=== PATIENT | male | born 1960 | race American Indian/Alaskan Native ===

== ENCOUNTER 2017-03-08 22:38 | Inpatient (IN) | payer SELFPAY ==
[2017-03-09 00:18] LABS: Eosinophils % (Auto) 0.6 % (0.0-4.3); Hematocrit 41.2 % (35.5-45.6); Hemoglobin 13.1 gm/dl (11.8-15.2); Mean Corpuscular HGB Conc 32 % (32-34); Mean Corpuscular Hemoglobin 30 pg (28-32); Mean Corpuscular Volume 93 fl (84-94); Platelet Count 195 K/mm3 (140-440); Red Blood Count 4.46 M/mm3 (3.65-5.03); Red Cell Distribution Width 17.8 % (13.2-15.2); White Blood Count 6.3 K/mm3 (4.5-11.0)
[2017-03-09 00:39] LABS: BUN/Creatinine Ratio 27.69; Chloride 95.6 mmol/L (98-107); Potassium 3.6 mmol/L (3.6-5.0)
--- NOTE | 2017-03-09 02:41 | Emergency Department Report ---
HPI - General Chief Complaint: Dyspnea/Respdistress Time Seen by Provider: 03/09/17 02:24 - HPI HPI: Room 5 The patient is a 56-year-old male presenting with a chief complaint of bilateral lower extremity edema. The patient has a history of CHF and states she's been compliant with his Lasix however over the past 3 days he's noticed increased swelling of bilateral lower extremities. Patient states yesterday he developed shortness of breath. Patient denies chest pain. Location: [see above] Duration: 3 days Quality: Swelling Severity: Moderate Modifying factors: [see above] Context: [see above] Mode of transportation: Unknown ED Past Medical Hx - Past Medical History Hx Hypertension: Yes Hx CVA: Yes Hx Congestive Heart Failure: Yes Hx COPD: Yes - Surgical History Past Surgical History?: No Additional Surgical History: defibrillator - Family History Family history: no significant - Social History Smoking Status: Former Smoker (none 3 weeks) Substance Use Type: None ED Review of Systems ROS: Stated complaint: LEG SWELLING Other details as noted in HPI Comment: All other systems reviewed and negative Constitutional: denies: chills, fever Eyes: denies: eye pain, eye discharge, vision change ENT: denies: ear pain, throat pain Respiratory: shortness of breath Cardiovascular: orthopnea. denies: chest pain Endocrine: no symptoms reported Gastrointestinal: denies: abdominal pain, nausea, diarrhea Genitourinary: denies: urgency, dysuria Musculoskeletal: denies: back pain, joint swelling, arthralgia Skin: denies: rash, lesions Neurological: denies: headache, weakness, paresthesias Psychiatric: denies: anxiety, depression Hematological/Lymphatic: other (bilateral lower extremity edema) Physical Exam - Physical Exam Vital Signs: Vital Signs 03/08/17 03/09/17 22:52 02:11 Temperature 97.5 F L Pulse Rate 102 H 96 H Respiratory 18 29 H Rate Blood Pressure 135/107 O2 Sat by Pulse 100 100 Oximetry Physical Exam: GENERAL: The patient is well-developed well-nourished male lying on stretcher not appearing to be in acute distress. [] HEENT: Normocephalic. Atraumatic. Extraocular motions are intact. Patient has moist mucous membranes. NECK: Supple. Trachea midline CHEST/LUNGS: Clear to auscultation. There is no respiratory distress noted. HEART/CARDIOVASCULAR: Regular. There is no tachycardia. There is no gallop rub or murmur. ABDOMEN: Abdomen is soft, nontender. Patient has normal bowel sounds. There is no abdominal distention. SKIN: There is no rash. There is 2-3+ bilateral lower extremity pitting edema. There is no diaphoresis. NEURO: The patient is awake, alert, and oriented. The patient is cooperative. The patient has no focal neurologic deficits. The patient has normal speech MUSCULOSKELETAL: There is no evidence of acute injury. ED Course Vital Signs 03/08/17 03/09/17 22:52 02:11 Temperature 97.5 F L Pulse Rate 102 H 96 H Respiratory 18 29 H Rate Blood Pressure 135/107 O2 Sat by Pulse 100 100 Oximetry ED Medical Decision Making - Lab Data Result diagrams: 03/08/17 23:47 03/08/17 23:47 Laboratory Tests 03/08/17 03/08/17 23:47 23:47 WBC 6.3 RBC 4.46 Hgb 13.1 Hct 41.2 MCV 93 MCH 30 MCHC 32 RDW 17.8 H Plt Count 195 Lymph % (Auto) 16.3 Lander % (Auto) 8.8 H Eos % (Auto) 0.6 Baso % (Auto) 1.0 Lymph # 1.0 L Lander # 0.5 Eos # 0.0 Baso # 0.1 Seg Neutrophils % 73.3 H Seg Neutrophils # 4.6 Sodium 136 L Potassium 3.6 Chloride 95.6 L Carbon Dioxide 20 L Anion Gap 24 BUN 72 H Creatinine 2.6 H Estimated GFR 31 BUN/Creatinine Ratio 27.69 Glucose 140 H Calcium 9.0 Troponin T 0.606 H* - EKG Data -: EKG Interpreted by Me EKG shows normal: sinus rhythm Rate: normal - EKG Data When compared to previous EKG there are: previous EKG unavailable Interpretation: nonspecific ST-T wave coby (T-wave inversions in leads 1, aVL, V5 , V6) - Radiology Data Radiology results: image reviewed (chest x-ray) interpreted by me: Chest x-ray-no focal infiltrates, no pneumothorax - Differential Diagnosis CHF exacerbation, acute renal failure Critical care attestation.: If time is entered above; I have spent that time in minutes in the direct care of this critically ill patient, excluding procedure time. ED Disposition Clinical Impression: CHF exacerbation, Acute renal failure Disposition: OP ADMITTED IP TO THIS HOSP Is pt being admited?: Yes Does the pt Need Aspirin: Yes Condition: Fair Referrals: PRIMARY CARE,MD [Primary Care Provider] - 3-5 Days Time of Disposition: 02:41 (hospitalist paged)
[2017-03-09] MEDS ORDERED: NITROSTAT SL PRN (06:10)
[2017-03-09] MEDS ORDERED: MORPHINE IV PRN (06:10)
--- NOTE | 2017-03-09 07:14 | History and Physical Report ---
CHIEF COMPLAINT: Shortness of breath. Other complaint includes swelling in the lower extremities. HISTORY OF PRESENT ILLNESS: The patient is a 56-year-old male with history of congestive heart failure, presenting with shortness of breath going on for about 3 days and also swelling in both lower extremities. There is no history of chest pain, no history of cough, no history of fever or chills, or nausea or vomiting. The patient presented to the Emergency Room. PAST MEDICAL HISTORY: Pertinent for congestive heart failure, COPD, cerebrovascular accident, hypertension. PAST SURGICAL HISTORY: Pertinent for defibrillator placement. FAMILY HISTORY: Noncontributory. SOCIAL HISTORY: The patient used to smoke, but has not smoked for 3 weeks. Does not drink alcohol and does not use illicit drugs. MEDICATIONS: The patient's home medications are not known at this time. ALLERGIES: There are no known drug allergies. REVIEW OF SYSTEMS: CONSTITUTIONAL: There is no fever, no chills, no diaphoresis. HEENT: There is no headache or sore throat. CARDIOVASCULAR: There is no chest pain or orthopnea. RESPIRATORY: Shortness of breath present. No cough. GASTROINTESTINAL: No nausea, no vomiting. No abdominal pain, diarrhea or constipation. NEUROLOGICAL: There is no numbness, no dizziness, no altered mental status. MUSCULOSKELETAL: There is swelling of both lower extremities. DERMATOLOGICAL: There is no skin rash or itching. GENITOURINARY: There is no dysuria, hematuria or flank pain. Rest of system review is normal. PHYSICAL EXAMINATION: GENERAL: At the time of exam, the patient was found to be alert, oriented x 3 and not in acute distress. VITAL SIGNS: Shows normal temperature with pulse of 95, respirations 22, blood pressure 124/99, O2 sat of 100% on room air. HEENT: Shows pupils to be equal, round, reactive to light and accommodating. Extraocular muscles are intact. NECK: Supple with no JVD or carotid bruit. CARDIOVASCULAR: Showed normal first and second heart sounds with no gallops or murmur. EXTREMITIES: The patient has about 2+ pitting edema. RESPIRATORY: Shows good air entry on both sides of the lung with no abnormal breath sounds. GASTROINTESTINAL: Shows abdomen to be full, soft, nontender with no organomegaly or rigidity. NEUROLOGICAL: Shows no focal deficit. MUSCULOSKELETAL: Shows no joint swelling or tenderness. DERMATOLOGICAL: Shows no skin rash. GENITOURINARY: Showing no costovertebral angle tenderness. PERTINENT LABORATORY DATA AND IMAGING STUDIES: The patient had chest x-ray done that shows no acute cardiopulmonary lesion. The pacemaker is in place. CBC showed normal white count, normal hemoglobin and normal hematocrit with CBC differential showing elevated segmented neutrophils of 73.3%. Chemistry shows slightly decreased sodium of 136, low chloride of 95.6, low CO2 of 20, elevated BUN of 72 and elevated creatinine of 2.6 with elevated troponin level of 0.6. Second troponin level was 0.7. Brain natriuretic peptide is high with a value of 3153. DIAGNOSES: 1. Congestive heart failure exacerbation. 2. Acute renal failure. 3. Elevated troponin. PLAN: The patient will be admitted to medical floor on telemetry using CHF pathway. We will have one more cardiac enzymes checked q. 6 hours. The patient will be on IV Lasix 40 mg daily and will be on nitro paste half inch to anterior chest wall q.i.d. The patient will have nephrology consult with ____ because of acute renal failure and we will have cardiology consult with Dr. Barker because of elevated troponin with CHF. The patient will have echocardiogram done this morning and will be on oxygen by nasal cannula per respiratory protocol. The patient will be on IV Zofran 4 mg q. 6 hours for nausea and vomiting and Tylenol 650 mg by mouth every 4 hours as needed for fever and headache. The patient will be on IV morphine 2 mg every 5 minutes as needed for chest pain and will be on Nitrostat 0.4 mg sublingual q. 5 minutes for breakthrough chest pain. Further management of the patient's condition will be determined by the airport operations coordinator and the video technician. JOB# [id number] OCN/NTS
--- NOTE | 2017-03-09 09:18 | XRay Report ---
Chest 2 views: History: Shortness of breath. Findings: Cardiomegaly. Trachea is midline. Stable pacemaker. No consolidation, pneumothorax or pleural effusion. Impression: Cardiomegaly. No definite acute lung changes. Early CHF cannot be entirely excluded.
--- NOTE | 2017-03-09 09:28 | Event Note ---
56M with pmh of CHF, who pw SOB x 3 days 1. Acute exacerbation of CHF echo, iv diuretics, cardiology consult, optimize meds 2. NSTEMI appears to be demand ischemia, cardiology consult 3. FINN likely vasomotor nephropathy should improve renal perfusion with lasix nephrology consult, renal u/s
--- NOTE | 2017-03-09 09:59 | Consultation ---
History of Present Illness - Reason for Consult Consult date: 03/09/17 acute renal failure, chronic renal failure Requesting physician: MINOR ORTA - History of Present Illness This is a 56 y.o. male with PMHX hypertension, COPD, Hep C, chronic systolic HF with EF less than 15%, s/p AICD, CKD stage 3, with multiple hospitalizations this year for CHF exacerbations, known to me from last hospitalization at [facility] in Nov, now presenting at [facility] ER with complaints of SOB, dyspnea on exertion, along with worsening b/l LE swelling. In ER patient was found to have evidence of cardiomegaly, acute pulmonary edema on CXR with elevated pro BNP >43636 and elevated troponin as high as 0.7. Patient is admitted for acute CHF exacerbation and IV diuresis. Labs also revealed worsening renal function with BUN/Cr at 72/2.6 mg/dl from baseline Cr around 1.8-2mg/dl in February, as per records from [facility]. Renal consult is requested for management of FINN on CKD. Pt seen and examined at bedside, in moderate respiratory distress, denies recent fever, chills, nausea, vomiting, abdominal pain, dysuria, rash. Denies recent NSAIDs, use, IV contrast exposure. Past History Past Medical History: COPD, heart failure, hepatitis (Hep C), hypertension, renal failure Past Surgical History: Other (AICD placement ) Social history: denies: smoking, alcohol abuse, prescription drug abuse, IV drug use Family history: hypertension (mother - HTN) Medications and Allergies Allergies Allergy/AdvReac Type Severity Reaction Status Date / Time No Known Allergies Allergy Unverified 03/08/17 22:52 Home Medications Medication Instructions Recorded Confirmed Last Taken Type AtorvaSTATin 20 mg PO HS 03/09/17 03/09/17 Unknown History Clopidogrel [Plavix] 75 mg PO DAILY 03/09/17 03/09/17 Unknown History Furosemide [Lasix TAB] 40 mg PO BID 03/09/17 03/09/17 Unknown History ISOSORBIDE MONOnitrate [Imdur ER] 30 mg PO DAILY 03/09/17 03/09/17 Unknown History hydrALAZINE 25 mg PO QID 03/09/17 03/09/17 Unknown History Active Meds: Active Medications Atorvastatin Calcium (Lipitor) 20 mg PO HS [facility] Clopidogrel Bisulfate (Plavix) 75 mg PO DAILY [facility] Furosemide (Lasix) 40 mg IV Q12H [facility] Heparin Sodium (Porcine) (Heparin) 5,000 unit SUB-Q Q12HR [facility] Hydralazine HCl (Apresoline) 25 mg PO QID [facility] Isosorbide Mononitrate (Imdur) 30 mg PO DAILY [facility] Morphine Sulfate (Morphine) 2 mg IV Q5MIN PRN PRN Reason: For Chest Pain Nitroglycerin (Nitrostat) 0.4 mg SL .Q5MIN PRN PRN Reason: Chest Pain Nitroglycerin (Nitro-Bid 2%) 0.5 inch TP QIDNTG [facility] PRN Reason: Protocol Review of Systems All systems: negative Constitutional: fatigue, weakness Cardiovascular: edema, shortness of breath, dyspnea on exertion, paroxysmal nocturnal dyspnea, leg edema Respiratory: cough, shortness of breath, dyspnea on exertion Exam - Vital Signs Vital signs: Vital Signs Temp Pulse Resp BP Pulse Ox 97.5 F L 102 H 18 135/107 100 03/08/17 22:52 03/08/17 22:52 03/08/17 22:52 03/08/17 22:52 03/08/17 22:52 - General Appearance General appearance: well-nourished, appears stated age EENT: ATNC, PERRL, mucous membranes moist Neck: Present: neck supple Respiratory: Decreased Breath Sounds Heart: regular, S1S2 Gastrointestinal: Present: normal, normoactive bowel sounds Integumentary: no rash, other (2+ edema b/l LE ) Neurologic: no focal deficit, alert and oriented x3, strength 5/5, CN 3-12 intact Psychiatric: mood/affect appropriate, cooperative Results - Lab Results 03/08/17 23:47 03/08/17 23:47 Most recent lab results Calcium 9.0 mg/dL (8.4-10.2) 03/08/17 23:47 Laboratory Tests 03/08/17 03/09/17 23:47 04:46 Calcium 9.0 Troponin T 0.606 H* 0.700 H* NT-Pro-B Natriuret Pep 51927 H Triglycerides 107 Cholesterol 101 LDL Cholesterol Direct 51 HDL Cholesterol 29 L Cholesterol/HDL Ratio 3.48 Laboratory Tests 03/08/17 03/09/17 23:47 04:46 Troponin T 0.606 H* 0.700 H* NT-Pro-B Natriuret Pep 21947 H Triglycerides 107 Cholesterol 101 LDL Cholesterol Direct 51 HDL Cholesterol 29 L Cholesterol/HDL Ratio 3.48 Assessment and Plan Assessment: 1. Acute kidney injury on CKD stage3, most likely due to acute cardiorenal syndrome. 2. Acute on chronic systolic HF, Echo from 02/12/2017 from [facility] showing EF of 10- 15%, s/p AICD. Severely reduced LVSF, dilated LV, severe global hypokinesis 3. COPD 4. Metabolic acidosis 5. H/o Hypertension 6. edema Plan/Recommendations: - IV diuresis with lasix 40mg q12hr to target net negative fluid balance of >1L/ day, consider adding metolazone if diuresis is not adequate. - hold REBECCA-I./ARB for now until eGFR is in steady state - if serum bicarb continues to trend down will consider nabicarb 650mg po tid. - no acute indications for renal replacement therapy for now. - renal US pending - cont supportive care for FINN/CKD avoid nephrotoxins, NSAIDs, IV Contrast will monitor lytes/renal parameters closely and make further recommendations.
[2017-03-09] MEDS ORDERED: LASIX IV SCH (10:00)
--- NOTE | 2017-03-09 10:32 | Ultrasound Report ---
Renal sonogram: History: UTI. Findings: Bilateral echogenic kidneys. Right kidney 10 x 4.1 x 5 cm. Cortical thickness 1.4 cm. No mass. No hydronephrosis. Left kidney 10.5 x 4.4 x 4.7 cm. Cortical thickness 1.5 cm. Cyst in the left kidney measures 0.7 x 0.5 x 0.6 cm and the second cyst measures 0.6 x 0.5 x 0.5 cm. Impression: Cysts left kidney.
[2017-03-09] MEDS: HEPARIN SUB-Q SCH ×3 (13:00→21:59)
[2017-03-09] MEDS: IMDUR PO SCH (13:38)
[2017-03-09] MEDS: PLAVIX PO SCH (13:42)
[2017-03-09] MEDS: NITRO-BID 2% TP SCH ×5 (13:42→20:52)
[2017-03-09] MEDS: APRESOLINE PO SCH ×6 (13:43→21:59)
[2017-03-09] MEDS: LASIX IV SCH ×3 (13:44→19:00)
[2017-03-09 14:28] LABS: Creatine Kinase MB 21.7 ng/mL (0.0-4.0)
--- NOTE | 2017-03-09 14:59 | Consultation ---
History of Present Illness Consult date: 03/09/17 Consult reason: congestive heart failure History of present illness: The patient is a 56-year-old man who is a poor historian, presented to the hospital with progressive shortness of breath and lower extremity edema. Clinically, consistent with decompensated congestive heart failure. He is apparently new to this hospital, with no prior records on the [facility] system. He states he receives his usual care [facility], and carries a diagnosis of heart failure but otherwise a poor historian unable to articulate details of prior cardiac workup. So far on this presentation, we find his ECG with normal sinus rhythm, left ventricle hypertrophy and repolarization abnormalities of LVH. There was an isolated mild rise of troponin of 0.6, but this is likely nonspecific, in the setting of chronic kidney disease with a creatinine of 2.6. Chest x-ray shows massive cardiomegaly, mild interstitial edema, and evidence of a single-chamber ICD in place. Echocardiogram shows an end-stage, 4-chamber dilated cardiomyopathy, ejection fraction approximately 10%, with moderate to severe regurgitant lesions of the mitral and tricuspid valves. The patient's home medications include oral furosemide, hydralazine and oral nitrates (presumably for afterload therapy in the setting of chronic kidney disease), atorvastatin and clopidogrel. The indication for clopidogrel is uncertain, the patient is unable to articulate a clear history of coronary artery disease. There is no beta sana therapy listed on his home medications. Currently, is on the telemetry floor, he is mildly dyspneic in bed even with the head of bed elevated about 40. There is no chest pain, no palpitations and no syncope. There is no report of AICD discharge. Past History Past Medical History: COPD, heart failure, hepatitis (Hep C), hypertension, renal failure Past Surgical History: Other (AICD placement ) Social history: denies: smoking, alcohol abuse, prescription drug abuse, IV drug use Family history: hypertension (mother - HTN) Medications and Allergies Allergies Allergy/AdvReac Type Severity Reaction Status Date / Time No Known Allergies Allergy Unverified 03/08/17 22:52 Home Medications Medication Instructions Recorded Confirmed Last Taken Type AtorvaSTATin 20 mg PO HS 03/09/17 03/09/17 Unknown History Clopidogrel [Plavix] 75 mg PO DAILY 03/09/17 03/09/17 Unknown History Furosemide [Lasix TAB] 40 mg PO BID 03/09/17 03/09/17 Unknown History ISOSORBIDE MONOnitrate [Imdur ER] 30 mg PO DAILY 03/09/17 03/09/17 Unknown History hydrALAZINE 25 mg PO QID 03/09/17 03/09/17 Unknown History Active Meds: Active Medications Atorvastatin Calcium (Lipitor) 20 mg PO HS [facility] Clopidogrel Bisulfate (Plavix) 75 mg PO DAILY [facility] Last Admin: 03/09/17 13:42 Dose: 75 mg Furosemide (Lasix) 40 mg IV 0600,1800 [facility] Last Admin: 03/09/17 13:44 Dose: 40 mg Heparin Sodium (Porcine) (Heparin) 5,000 unit SUB-Q Q12HR [facility] Hydralazine HCl (Apresoline) 25 mg PO QID [facility] Last Admin: 03/09/17 13:43 Dose: 25 mg Isosorbide Mononitrate (Imdur) 30 mg PO DAILY [facility] Last Admin: 03/09/17 13:38 Dose: 30 mg Morphine Sulfate (Morphine) 2 mg IV Q5MIN PRN PRN Reason: For Chest Pain Nitroglycerin (Nitrostat) 0.4 mg SL .Q5MIN PRN PRN Reason: Chest Pain Nitroglycerin (Nitro-Bid 2%) 0.5 inch TP QIDNTG [facility] PRN Reason: Protocol Last Admin: 03/09/17 13:42 Dose: 0.5 inch Review of Systems Cardiovascular: orthopnea, edema, shortness of breath, no chest pain, no palpitations, no rapid/irregular heart beat, no syncope, no lightheadedness Physical Examination Vital Signs Temp Pulse Resp BP Pulse Ox 97.5 F L 102 H 18 135/107 100 03/08/17 22:52 03/08/17 22:52 03/08/17 22:52 03/08/17 22:52 03/08/17 22:52 General appearance: mild distress HEENT: Positive: PERRL Neck: Positive: neck supple Cardiac: Positive: Reg Rate and Rhythm Lungs: Positive: Decreased Breath Sounds Neuro: Positive: Grossly Intact Abdomen: Positive: Soft Male genitourinary: Positive: deferred Skin: Positive: Clear Extremities: Absent: edema Results 03/08/17 23:47 03/08/17 23:47 Cardiac Enzymes 03/09/17 Range/Units 12:43 CK-MB (CK-2) 21.7 H (0.0-4.0) ng/mL EKG interpretations - Telemetry EKG Rhythm: Sinus Rhythm Assessment and Plan - Patient Problems (1) Acute on chronic systolic heart failure Current Visit: Yes Status: Acute Plan to address problem: Patient presents with acute on chronic systolic heart failure. Echocardiogram shows severe four-chamber dilated cardiomyopathy, with left ventricular ejection fraction 10%. It appears likely that his cardiomyopathy is nonischemic , but we will need to obtain his prior records from [facility] for further review. Medical therapy in the meantime would include aggressive diuretic therapy, continued afterload reducing therapy, addition of beta sana with carvedilol, and a several day trial of inotropic therapy with intravenous milrinone.
[2017-03-09] MEDS: COREG PO SCH ×2 (18:44→22:01)
[2017-03-10] MEDS: NITRO-BID 2% TP SCH ×4 (06:02→18:29)
[2017-03-10] MEDS: LASIX IV SCH ×2 (06:02→18:25)
[2017-03-10 08:32] LABS: BUN/Creatinine Ratio 30.37; Calcium 9.2 mg/dL (8.4-10.2); Chloride 97.2 mmol/L (98-107)
[2017-03-10] MEDS: PRIMACOR 20 MG in D5W 80 ML IV SCH (09:45)
[2017-03-10] MEDS: APRESOLINE PO SCH ×4 (10:29→21:40)
[2017-03-10] MEDS: IMDUR PO SCH (10:29)
[2017-03-10] MEDS: COREG PO SCH ×2 (10:30→21:40)
[2017-03-10] MEDS: PLAVIX PO SCH (10:30)
[2017-03-10] MEDS: HEPARIN SUB-Q SCH ×2 (10:31→21:41)
--- NOTE | 2017-03-10 10:32 | Progress Note ---
Assessment and Plan Acute on chronic systolic heart failure Severe Dilated Cardiomyopathy, nonischemic LHC done 11/2016 at [facility] demonstrates normal coronaries. EF 10-15% on echocardiogram this admission. Presence of AICD Chronic renal failure Hx of CVA -on plavix and aspirin as an outpatient Hypertension Recommendations: Aggressive medical therapy for his heart failure including IV diuresis and IV milrinone. Subjective Date of service: 03/10/17 Interval history: No distress noted. Patient reports his breathing is better. He denies chest pain. Objective Vital Signs Temp Pulse Pulse Resp BP BP Pulse Ox 03/10/17 08:00 99.1 F 93 H 18 137/90 100 03/10/17 06:02 120/78 03/10/17 04:35 97.6 F 82 16 136/86 99 03/10/17 00:30 97.6 F 80 16 120/78 100 03/10/17 00:00 80 03/09/17 22:00 100 03/09/17 21:59 90 122/78 03/09/17 20:48 97.6 F 90 24 122/78 100 03/09/17 20:42 88 03/09/17 18:44 88 03/09/17 18:00 99 H 03/09/17 17:30 88 03/09/17 16:30 90 03/09/17 16:00 97.4 F L 85 20 134/102 100 03/09/17 13:43 87 03/09/17 13:42 87 03/09/17 13:38 87 - Physical Examination General: No Apparent Distress HEENT: Positive: PERRL Neck: Positive: neck supple Cardiac: Positive: Reg Rate and Rhythm Lungs: Positive: Decreased Breath Sounds Neuro: Positive: Grossly Intact Skin: Positive: Clear - Labs and Meds Cardiac Enzymes 03/09/17 Range/Units 12:43 CK-MB (CK-2) 21.7 H (0.0-4.0) ng/mL Comprehensive Metabolic Panel 03/10/17 Range/Units 07:31 Sodium 135 L (137-145) mmol/L Potassium 4.0 (3.6-5.0) mmol/L Chloride 97.2 L (98-107) mmol/L Carbon Dioxide 20 L (22-30) mmol/L BUN 82 H (9-20) mg/dL Creatinine 2.7 H (0.8-1.5) mg/dL Glucose 81 (75-100) mg/dL Calcium 9.2 (8.4-10.2) mg/dL
--- NOTE | 2017-03-10 14:17 | Progress Note ---
Assessment and Plan Assessment and plan: 56M with pmh of CHF, who pw SOB x 3 days 1. Acute exacerbation of systolic CHF EF 10% sp AICD echo, iv diuretics, cardiology consult appreciated aggressive medical therapy, IV diuresis and milrinone drip , optimize meds 2. NSTEMI appears to be demand ischemia, cardiology consult appreciated recent negative cath 3 months ago 3. FINN likely vasomotor nephropathy should improve renal perfusion with lasix nephrology consult appreciated, renal u/s only showed small renal cysts, no obstruction History Interval history: Continues to have shortness of breath, he says is not improved Hospitalist Physical - Physical exam Narrative exam: General: Patient appears well in no distress HEENT: MMM, EOMI cardiac: S1-S2 heard lungs: Decreased air entry, bibasilar crackles Abdomen: soft nontender extremities: no edema clubbing or cyanosis Skin: no rash or lesion Neuro: no focal deficit Psych: appropriate behavior and mood, cognition intact - Constitutional Vitals: Temp Pulse Resp BP Pulse Ox 98.0 F 84 20 109/74 94 03/10/17 12:00 03/10/17 12:00 03/10/17 12:00 03/10/17 12:00 03/10/17 12:00 General appearance: Present: mild distress Results - Labs CBC & Chem 7: 03/08/17 23:47 03/11/17 07:12 Labs: Laboratory Last Values WBC 6.3 K/mm3 (4.5-11.0) 03/08/17 23:47 RBC 4.46 M/mm3 (3.65-5.03) 03/08/17 23:47 Hgb 13.1 gm/dl (11.8-15.2) 03/08/17 23:47 Hct 41.2 % (35.5-45.6) 03/08/17 23:47 MCV 93 fl (84-94) 03/08/17 23:47 MCH 30 pg (28-32) 03/08/17 23:47 MCHC 32 % (32-34) 03/08/17 23:47 RDW 17.8 % (13.2-15.2) H 03/08/17 23:47 Plt Count 195 K/mm3 (140-440) 03/08/17 23:47 Lymph % (Auto) 16.3 % (13.4-35.0) 03/08/17 23:47 [place] % (Auto) 8.8 % (0.0-7.3) H 03/08/17 23:47 Eos % (Auto) 0.6 % (0.0-4.3) 03/08/17 23:47 Baso % (Auto) 1.0 % (0.0-1.8) 03/08/17 23:47 Lymph # 1.0 K/mm3 (1.2-5.4) L 03/08/17 23:47 [place] # 0.5 K/mm3 (0.0-0.8) 03/08/17 23:47 Eos # 0.0 K/mm3 (0.0-0.4) 03/08/17 23:47 Baso # 0.1 K/mm3 (0.0-0.1) 03/08/17 23:47 Seg Neutrophils % 73.3 % (40.0-70.0) H 03/08/17 23:47 Seg Neutrophils # 4.6 K/mm3 (1.8-7.7) 03/08/17 23:47 Sodium 135 mmol/L (137-145) L 03/10/17 07:31 Potassium 4.0 mmol/L (3.6-5.0) 03/10/17 07:31 Chloride 97.2 mmol/L (98-107) L 03/10/17 07:31 Carbon Dioxide 20 mmol/L (22-30) L 03/10/17 07:31 Anion Gap 22 mmol/L 03/10/17 07:31 BUN 82 mg/dL (9-20) H 03/10/17 07:31 Creatinine 2.7 mg/dL (0.8-1.5) H 03/10/17 07:31 Estimated GFR 30 ml/min 03/10/17 07:31 BUN/Creatinine Ratio 30.37 % 03/10/17 07:31 Glucose 81 mg/dL (75-100) 03/10/17 07:31 Calcium 9.2 mg/dL (8.4-10.2) 03/10/17 07:31 Total Creatine Kinase 319 units/L (55-170) H 03/09/17 12:43 CK-MB (CK-2) 21.7 ng/mL (0.0-4.0) H 03/09/17 12:43 CK-MB (CK-2) Rel Index 6.8 (0-4) H 03/09/17 12:43 Troponin T 0.710 ng/mL (0.00-0.029) H* 03/09/17 12:43 NT-Pro-B Natriuret Pep 25679 pg/mL (0-900) H 03/08/17 23:47 Triglycerides 107 mg/dL (2-149) 03/08/17 23:47 Cholesterol 101 mg/dL (50-199) 03/08/17 23:47 LDL Cholesterol Direct 51 mg/dL (50-130) 03/08/17 23:47 HDL Cholesterol 29 mg/dL (40-59) L 03/08/17 23:47 Cholesterol/HDL Ratio 3.48 % 03/08/17 23:47
--- NOTE | 2017-03-10 20:50 | Progress Note ---
Assessment and Plan Assessment: 1. Acute kidney injury on CKD stage3, most likely due to acute cardiorenal syndrome. 2. Acute on chronic systolic HF, Echo from 02/12/2017 from [facility] showing EF of 10- 15%, s/p AICD. Severely reduced LVSF, dilated LV, severe global hypokinesis 3. COPD 4. Metabolic acidosis 5. Essential Hypertension 6. Edema 2/2 Dx 2 Plan/Recommendations: - IV diuresis with lasix 40mg q12hr to target net negative fluid balance of >1L/ day, Last 24 hrs urine out put not fully documented. Strict I/S requested. Will also add metolazone for further diuresis. Continue IV Milrinone drip. - Hold REBECCA-I./ARB for now until eGFR is in steady state -Renal US reviewed. No hydronephrosis seen - Continue supportive care for FINN/CKD avoid nephrotoxins, NSAIDs, IV Contrast Subjective Date of service: 03/10/17 Interval history: +SOB, no CP or palpitations Objective - Exam Narrative Exam: General appearance: well-nourished, appears stated age, no distress EENT: ATNC, PERRL, mucous membranes moist Neck: Present: neck supple, no JVD, trachea midline, no lymphadenoapthy Respiratory: Decreased Breath Sounds, no wheezing Heart: regular, S1S2, no m,g,r Gastrointestinal: Present: normal, normoactive bowel sounds, no organomegally Integumentary: warm and dry skin. No rash, other (2+ edema b/l LE ), Neurologic: no focal deficit, alert and oriented x3, strength 5/5, CN 3-12 intact Psychiatric: mood/affect appropriate, cooperative - Vital Signs Vital signs: Vital Signs - 12hr 03/10/17 03/10/17 03/10/17 10:00 10:26 10:29 Temperature Pulse Rate 75 88 Pulse Rate [ 84 Left From Monitor] Respiratory 18 Rate Blood Pressure [Left Arm] O2 Sat by Pulse 98 Oximetry 03/10/17 03/10/17 03/10/17 10:30 12:00 14:30 Temperature 98.0 F Pulse Rate 88 84 Pulse Rate [ 84 Left From Monitor] Respiratory 20 Rate Blood Pressure 109/74 [Left Arm] O2 Sat by Pulse 94 Oximetry 03/10/17 03/10/17 03/10/17 16:00 16:35 18:28 Temperature 97.5 F L Pulse Rate 84 84 Pulse Rate [ 52 L Left From Monitor] Respiratory 20 Rate Blood Pressure 164/104 [Left Arm] O2 Sat by Pulse 100 Oximetry 03/10/17 03/10/17 18:29 20:47 Temperature 97.8 F Pulse Rate 84 Pulse Rate [ 77 Left From Monitor] Respiratory 18 Rate Blood Pressure 126/81 [Left Arm] O2 Sat by Pulse 98 Oximetry - Lab 03/08/17 23:47 03/10/17 07:31 Most recent lab results Calcium 9.2 mg/dL (8.4-10.2) 03/10/17 07:31
[2017-03-10] MEDS: ZAROXOLYN PO SCH (21:39)
--- NOTE | 2017-03-10 23:37 | Admit Criteria Form ---
Admission Criteria Documentation: HEART FAILURE: COMMON COMPLICATIONS Clinical Indications for Inpatient Care (Place 'X' for any and all applicable criteria): Ongoing inpatient care may be indicated for heart failure with ANY ONE of the following (1)(2)(3)(4)(5): [ ]I. Ongoing need for care for primary condition requiring frequent therapy adjustments because of changes in cardiac function (eg, drug dosage changes for drugs that are renally metabolized) [ ]II. New-onset heart failure [ ]III. Heart failure with decreased urine output not responsive to attempts to optimize volume status [ ]IV. Acute cardiac ischemia causing or associated with failure [X ]V. Complications of heart failure, including ANY ONE of the following: [ ]a) Pericardial effusion [ ]b) Symptomatic pleural effusion [ ]c) O2 saturation <90% or PO2 < 60 mm Hg (8.0 kPa) on room air or require baseline supplemental O2 [ ]d) Tachypnea [X]e) Dyspnea [ ]f) Syncope [ ]g) Change in mental status [ ]h) Acute renal insufficiency that is severe (reduction of more than 50% in estimated glomerular filtration rate from baseline) or progressive reduction of more than 25% in estimated glomerular filtration rate from baseline, with creatinine continuing to rise) [ ]i) Hemodynamic instability [ ]j) Anasarca [ ]k) Clinically significant metabolic abnormalities due to heart failure (eg, new-onset metabolic acidosis) Extended stay beyond goal length of stay for primary condition may be needed until ALL of the following are present(1)(3): [ ]a) Stable and effective diuretic regimen established (or patient on stable dialysis regimen if in chronic renal failure) [ ]b) Breathing comfortably at rest [ ]c) Saturation of arterial oxygen greater than 90% or at acceptable baseline [ ]d) Pulmonary edema absent or improved [ ]e) Hemodynamic stability [ ]f) Volume status acceptable on oral medication [ ]g) Peripheral or sacral edema absent or improved [ ]h) Renal function stable and manageable at a lower level of care [ ]i) Complications (eg, pleural effusion) resolved or manageable at a lower level of care [ ]j) Patient or caregiver has received written discharge instructions or educational material addressing activity level, diet, discharge medications, follow-up appointment, weight monitoring, and what to do if symptoms worsen The original [facility] content created by [employer] has been revised. The portions of the content which have been revised are identified through the use of italic text or in bold, and [facility] has neither reviewed nor approved the modified material.All other unmodified content is copyright [facility]. Please see references footnoted in the original [facility] edition 2016 Admission Criteria Met: Yes
[2017-03-11] MEDS: NITRO-BID 2% TP SCH ×5 (05:44→20:08)
[2017-03-11] MEDS: PRIMACOR 20 MG in D5W 80 ML IV SCH ×2 (05:45→18:15)
[2017-03-11] MEDS: LASIX IV SCH ×2 (05:45→20:08)
--- NOTE | 2017-03-11 08:19 | Progress Note ---
Assessment and Plan Assessment and plan: 56M with pmh of CHF, who pw SOB x 3 days; 1. Acute exacerbation of systolic CHF EF 10% sp AICD echo, iv diuretics, cardiology consult appreciated aggressive medical therapy, IV diuresis and milrinone drip clinically improved , optimize meds 2. NSTEMI appears to be demand ischemia, cardiology consult appreciated recent negative cath 3 months ago 3. FINN likely vasomotor nephropathy should improve renal perfusion with lasix nephrology consult appreciated, renal u/s only showed small renal cysts, no obstruction History Interval history: Continues to have shortness of breath, he says it is now improved Hospitalist Physical - Physical exam Narrative exam: General: Patient appears well in no distress HEENT: MMM, EOMI cardiac: S1-S2 heard lungs: Decreased air entry, bibasilar crackles Abdomen: soft nontender extremities: no edema clubbing or cyanosis Skin: no rash or lesion Neuro: no focal deficit Psych: appropriate behavior and mood, cognition intact - Constitutional Vitals: Temp Pulse Resp BP Pulse Ox 97.9 F 72 18 113/65 96 03/11/17 04:00 03/11/17 04:00 03/11/17 04:00 03/11/17 04:00 03/11/17 04:00 General appearance: Present: mild distress Results - Labs CBC & Chem 7: 03/08/17 23:47 03/11/17 07:12 Labs: Laboratory Last Values WBC 6.3 K/mm3 (4.5-11.0) 03/08/17 23:47 RBC 4.46 M/mm3 (3.65-5.03) 03/08/17 23:47 Hgb 13.1 gm/dl (11.8-15.2) 03/08/17 23:47 Hct 41.2 % (35.5-45.6) 03/08/17 23:47 MCV 93 fl (84-94) 03/08/17 23:47 MCH 30 pg (28-32) 03/08/17 23:47 MCHC 32 % (32-34) 03/08/17 23:47 RDW 17.8 % (13.2-15.2) H 03/08/17 23:47 Plt Count 195 K/mm3 (140-440) 03/08/17 23:47 Lymph % (Auto) 16.3 % (13.4-35.0) 03/08/17 23:47 [place] % (Auto) 8.8 % (0.0-7.3) H 03/08/17 23:47 Eos % (Auto) 0.6 % (0.0-4.3) 03/08/17 23:47 Baso % (Auto) 1.0 % (0.0-1.8) 03/08/17 23:47 Lymph # 1.0 K/mm3 (1.2-5.4) L 03/08/17 23:47 [place] # 0.5 K/mm3 (0.0-0.8) 03/08/17 23:47 Eos # 0.0 K/mm3 (0.0-0.4) 03/08/17 23:47 Baso # 0.1 K/mm3 (0.0-0.1) 03/08/17 23:47 Seg Neutrophils % 73.3 % (40.0-70.0) H 03/08/17 23:47 Seg Neutrophils # 4.6 K/mm3 (1.8-7.7) 03/08/17 23:47 Sodium 135 mmol/L (137-145) L 03/10/17 07:31 Potassium 4.0 mmol/L (3.6-5.0) 03/10/17 07:31 Chloride 97.2 mmol/L (98-107) L 03/10/17 07:31 Carbon Dioxide 20 mmol/L (22-30) L 03/10/17 07:31 Anion Gap 22 mmol/L 03/10/17 07:31 BUN 82 mg/dL (9-20) H 03/10/17 07:31 Creatinine 2.7 mg/dL (0.8-1.5) H 03/10/17 07:31 Estimated GFR 30 ml/min 03/10/17 07:31 BUN/Creatinine Ratio 30.37 % 03/10/17 07:31 Glucose 81 mg/dL (75-100) 03/10/17 07:31 Calcium 9.2 mg/dL (8.4-10.2) 03/10/17 07:31 Total Creatine Kinase 319 units/L (55-170) H 03/09/17 12:43 CK-MB (CK-2) 21.7 ng/mL (0.0-4.0) H 03/09/17 12:43 CK-MB (CK-2) Rel Index 6.8 (0-4) H 03/09/17 12:43 Troponin T 0.710 ng/mL (0.00-0.029) H* 03/09/17 12:43 NT-Pro-B Natriuret Pep 55423 pg/mL (0-900) H 03/08/17 23:47 Triglycerides 107 mg/dL (2-149) 03/08/17 23:47 Cholesterol 101 mg/dL (50-199) 03/08/17 23:47 LDL Cholesterol Direct 51 mg/dL (50-130) 03/08/17 23:47 HDL Cholesterol 29 mg/dL (40-59) L 03/08/17 23:47 Cholesterol/HDL Ratio 3.48 % 03/08/17 23:47
[2017-03-11 08:22] LABS: BUN/Creatinine Ratio 31.15; Calcium 8.4 mg/dL (8.4-10.2); Chloride 96.7 mmol/L (98-107); Potassium 3.3 mmol/L (3.6-5.0)
[2017-03-11] MEDS: APRESOLINE PO SCH ×4 (10:00→21:00)
--- NOTE | 2017-03-11 10:53 | Progress Note ---
Assessment and Plan Acute on chronic systolic heart failure Severe Dilated Cardiomyopathy, nonischemic LHC done 11/2016 at [facility] demonstrates normal coronaries. EF 10-15% on echocardiogram this admission. Presence of AICD Chronic renal failure Hx of CVA -on plavix and aspirin as an outpatient Hypertension Recommendations: Aggressive medical therapy for his heart failure including IV diuresis and IV milrinone. Advised dietary/fluid restrictions. Daily weights. Subjective Date of service: 03/11/17 Interval history: Patient has no complaints. Continues on IV milrinone. Reports he is diuresing well. Objective Vital Signs Temp Pulse Pulse Resp BP BP Pulse Ox 03/11/17 04:00 97.9 F 72 18 113/65 96 03/11/17 00:00 98.2 F 69 73 18 122/85 98 03/10/17 22:00 92 H 100 03/10/17 21:40 77 126/81 03/10/17 20:47 97.8 F 77 18 126/81 98 03/10/17 18:29 84 03/10/17 18:28 84 03/10/17 16:35 97.5 F L 52 L 20 164/104 100 03/10/17 16:00 84 03/10/17 14:30 84 03/10/17 12:00 98.0 F 84 20 109/74 94 - Physical Examination General: No Apparent Distress HEENT: Positive: PERRL Neck: Positive: neck supple Cardiac: Positive: Reg Rate and Rhythm Lungs: Positive: Decreased Breath Sounds Neuro: Positive: Grossly Intact Extremities: Absent: edema - Labs and Meds Comprehensive Metabolic Panel 03/11/17 Range/Units 07:12 Sodium 135 L (137-145) mmol/L Potassium 3.3 L (3.6-5.0) mmol/L Chloride 96.7 L (98-107) mmol/L Carbon Dioxide 24 (22-30) mmol/L BUN 81 H (9-20) mg/dL Creatinine 2.6 H (0.8-1.5) mg/dL Glucose 86 (75-100) mg/dL Calcium 8.4 (8.4-10.2) mg/dL
--- NOTE | 2017-03-11 10:57 | Progress Note ---
Assessment and Plan Assessment: 1. Acute kidney injury on CKD stage3, most likely due to acute cardiorenal syndrome. 2. Acute on chronic systolic HF, Echo from 02/12/2017 from [facility] showing EF of 10- 15%, s/p AICD. Severely reduced LVSF, dilated LV, severe global hypokinesis 3. COPD 4. Metabolic acidosis 5. Essential Hypertension 6. Edema 2/2 Dx 2 Plan/Recommendations: - Follow up on BMP today -IV diuresis with lasix 40mg q12hr in combination with metolazone. His fluid blance is negative by about 2 L today. -Continue IV Milrinone drip. - Hold REBECCA-I./ARB for now until eGFR is in steady state -Renal US reviewed. No hydronephrosis seen. -Continue supportive care for FINN/CKD avoid nephrotoxins, NSAIDs, IV Contrast Subjective Date of service: 03/11/17 Interval history: SOB, LE edema improving Objective - Exam Narrative Exam: General appearance: well-nourished, appears stated age, no distress EENT: ATNC, PERRL, mucous membranes moist Neck: Present: neck supple, no JVD, trachea midline, no lymphadenoapthy Respiratory: Decreased Breath Sounds, no wheezing Heart: regular, S1S2, no m,g,r Gastrointestinal: Present: normal, normoactive bowel sounds, no organomegally Integumentary: warm and dry skin. No rash, other (2+ edema b/l LE ), Neurologic: no focal deficit, alert and oriented x3, strength 5/5, CN 3-12 intact Psychiatric: mood/affect appropriate, cooperative - Vital Signs Vital signs: Vital Signs - 12hr 03/11/17 03/11/17 00:00 04:00 Temperature 98.2 F 97.9 F Pulse Rate 69 Pulse Rate [ 73 72 Left From Monitor] Respiratory 18 18 Rate Blood Pressure 122/85 113/65 [Left Arm] O2 Sat by Pulse 98 96 Oximetry - Lab 03/08/17 23:47 03/11/17 07:12 Most recent lab results Calcium 8.4 mg/dL (8.4-10.2) 03/11/17 07:12
[2017-03-11] MEDS ORDERED: K-DUR PO ONE ×4 (10:59→22:00)
[2017-03-11] MEDS: HEPARIN SUB-Q SCH ×2 (16:45→21:02)
[2017-03-11] MEDS: IMDUR PO SCH (18:43)
[2017-03-11] MEDS: ZAROXOLYN PO SCH ×2 (19:42→21:00)
[2017-03-11] MEDS: PLAVIX PO SCH (19:45)
[2017-03-11] MEDS: COREG PO SCH ×2 (19:46→21:00)
[2017-03-12] MEDS: PRIMACOR 20 MG in D5W 80 ML IV SCH ×2 (06:22→17:39)
[2017-03-12] MEDS: NITRO-BID 2% TP SCH ×4 (06:23→17:18)
[2017-03-12] MEDS: LASIX IV SCH ×2 (06:23→17:18)
[2017-03-12 06:24] LABS: BUN/Creatinine Ratio 32.6; Calcium 8.5 mg/dL (8.4-10.2); Chloride 94.1 mmol/L (98-107); Potassium 3.6 mmol/L (3.6-5.0)
[2017-03-12] MEDS: IMDUR PO SCH (10:09)
[2017-03-12] MEDS: HEPARIN SUB-Q SCH ×2 (10:09→21:27)
[2017-03-12] MEDS: K-DUR PO SCH (10:09)
[2017-03-12] MEDS: COREG PO SCH ×2 (10:09→21:24)
[2017-03-12] MEDS: APRESOLINE PO SCH ×4 (10:09→21:24)
--- NOTE | 2017-03-12 10:09 | Progress Note ---
Assessment and Plan Acute on chronic systolic heart failure Severe Dilated Cardiomyopathy, nonischemic LHC done 11/2016 at [facility] demonstrates normal coronaries. EF 10-15% on echocardiogram this admission. Presence of AICD Chronic renal failure Hx of CVA -on plavix and aspirin as an outpatient Hypertension Recommendations: Aggressive medical therapy for his heart failure. Advised dietary/fluid restrictions. Daily weights. Subjective Date of service: 03/12/17 Interval history: Patient has no complaints. Reports his breathing is better. Continues on IV milrinone. Objective Vital Signs Temp Pulse Pulse Resp BP BP Pulse Ox 03/12/17 06:23 74 105/78 03/12/17 06:06 98.8 F 74 18 105/78 100 03/12/17 01:57 20 03/12/17 01:27 22 03/12/17 00:09 97.7 F 71 20 107/56 100 03/11/17 21:35 97.4 F L 74 20 127/86 100 03/11/17 21:00 74 127/86 03/11/17 20:35 100 03/11/17 19:56 80 03/11/17 19:50 24 98 03/11/17 19:46 76 03/11/17 18:43 76 03/11/17 12:48 73 03/11/17 11:33 98 03/11/17 11:29 98.5 F 72 16 93/50 99 - Physical Examination General: No Apparent Distress HEENT: Positive: PERRL Neck: Positive: neck supple Cardiac: Positive: Reg Rate and Rhythm Neuro: Positive: Grossly Intact - Labs and Meds Comprehensive Metabolic Panel 03/12/17 Range/Units 05:42 Sodium 134 L (137-145) mmol/L Potassium 3.6 (3.6-5.0) mmol/L Chloride 94.1 L (98-107) mmol/L Carbon Dioxide 25 (22-30) mmol/L BUN 75 H (9-20) mg/dL Creatinine 2.3 H (0.8-1.5) mg/dL Glucose 91 (75-100) mg/dL Calcium 8.5 (8.4-10.2) mg/dL
[2017-03-12] MEDS: PLAVIX PO SCH (10:10)
[2017-03-12] MEDS: ZAROXOLYN PO SCH ×2 (10:10→21:23)
--- NOTE | 2017-03-12 10:39 | Discharge Summary ---
Providers - Providers Date of Admission: 03/09/17 06:07 Attending physician: MATT MOHAMUD MD 03/09/17 06:16 Consult to Physician [CONS] Routine Consulting Provider: EMMA STORY Reason For Exam: ACUTE RENAL FAILURE Place consult to:: EMMA STORY Notified:: yes Was contact made?: Yes If yes, spoke with:: Dr Story Time called:: 09:32 03/09/17 06:29 Consult to Physician [CONS] Routine Consulting Provider: NARESH MAGANA Reason For Exam: CHF EXACERBATION WITH ELEVATED TROPONIN LEVELS Place consult to:: NARESH MAGANA Notified:: a service Phone number called:: [phone] Was contact made?: Yes If yes, spoke with:: migdalia Time called:: 10:49 Primary care physician: [employer]GER Hospitalization Condition: Fair Hospital course: 56M with pmh of CHF, who pw SOB x 3 days; 1. Acute exacerbation of systolic CHF EF 10% sp AICD He received IV diuretics and milrinone drip, his medications were optimized, the fluid was removed from the patient's clinically improved. 2. NSTEMI, Type 2 appears to be demand ischemia, cardiology consult appreciated recent negative cath 3 months ago, he received medical management 3. FINN likely vasomotor nephropathy He received Lasix and milrinone drip and renal perfusion improved, and renal function also improved. nephrology consult appreciated, renal u/s only showed small renal cysts, no obstruction Disposition: DC-01 TO HOME OR SELFCARE Time spent for discharge: 35 minutes Core Measure Documentation - Palliative Care Palliative Care/ Comfort Measures: Not Applicable - Core Measures Any of the following diagnoses?: heart failure - Heart Failure Discharge Requirements REBECCA/ARB for LVSD if EF <40%: Yes Beta sana at discharge: Yes Exam - Constitutional Vitals: Temp Pulse Resp BP Pulse Ox 98.7 F 82 18 124/77 100 03/12/17 07:45 03/12/17 07:45 03/12/17 07:45 03/12/17 07:45 03/12/17 07:45 General appearance: Present: no acute distress, well-nourished - EENT Eyes: Present: PERRL ENT: hearing intact, clear oral mucosa - Neck Neck: Present: supple, normal ROM - Respiratory Respiratory effort: normal Respiratory: bilateral: CTA - Cardiovascular Heart Sounds: Present: S1 & S2. Absent: rub, click - Extremities Extremities: pulses symmetrical, No edema Peripheral Pulses: within normal limits - Abdominal General gastrointestinal: Present: soft, non-tender, non-distended, normal bowel sounds Male genitourinary: Present: normal - Integumentary Integumentary: Present: clear, warm, dry - Musculoskeletal Musculoskeletal: gait normal, strength equal bilaterally - Psychiatric Psychiatric: appropriate mood/affect, intact judgment & insight - Neurologic Neurologic: CNII-XII intact, moves all extremities Plan Follow up with: NARESH MAGANA MD [Staff Physician] - 7 Days EMMA STORY MD [Staff Physician] - 7 Days PRIMARY CAREMD [Primary Care Provider] - 3-5 Days Prescriptions: Furosemide [Lasix TAB] 40 mg PO BID #60 tablet Metolazone [Zaroxolyn] 2.5 mg PO BID #60 tablet Potassium Chloride [K-Dur] 30 meq PO QDAY #30 tablet
--- NOTE | 2017-03-12 12:08 | Progress Note ---
Assessment and Plan Assessment: 1. Acute kidney injury on CKD stage3, most likely due to acute cardiorenal syndrome. 2. Acute on chronic systolic HF, Echo from 02/12/2017 from [facility] showing EF of 10- 15%, s/p AICD. Severely reduced LVSF, dilated LV, severe global hypokinesis 3. COPD 4. Metabolic acidosis 5. Essential Hypertension 6. Edema 2/2 Dx 2 Plan/Recommendations: - BUN/CR improving - Fluid overload improving with IV Lasix 40mg q12hr and metolazone combination. His fluid balance is negative by 1.3 L in the last 24 hrs. - IV Milrinone drip per table inspector. - Hold REBECCA-I./ARB for now until eGFR is in steady state - Renal US reviewed. No hydronephrosis seen. - Continue supportive care for FINN/CKD avoid nephrotoxins, NSAIDs, IV Contrast -If he gets d/chaparro please d/c himn on Lasix 40 PO BID and metolazone 2.5 mg BID Follow up in office next week for repeat labs and adjustment of his diuretics. Subjective Date of service: 03/12/17 Interval history: SOB, LE edema continues to improve Objective - Exam Narrative Exam: General appearance: well-nourished, appears stated age, no distress EENT: ATNC, PERRL, mucous membranes moist Neck: Present: neck supple, no JVD, trachea midline, no lymphadenoapthy Respiratory: Decreased Breath Sounds, no wheezing Heart: regular, S1S2, no m,g,r Gastrointestinal: Present: normal, normoactive bowel sounds, no organomegally Integumentary: warm and dry skin. No rash, other (1+ edema b/l LE --edema improved significantly) Neurologic: no focal deficit, alert and oriented x3, strength 5/5, CN 3-12 intact Psychiatric: mood/affect appropriate, cooperative - Vital Signs Vital signs: Vital Signs - 12hr 03/12/17 03/12/17 03/12/17 00:09 01:27 01:57 Temperature 97.7 F Pulse Rate Pulse Rate [ 71 Right] Respiratory 20 22 20 Rate Blood Pressure Blood Pressure 107/56 [Left Arm] O2 Sat by Pulse 100 Oximetry 03/12/17 03/12/17 03/12/17 06:06 06:23 07:45 Temperature 98.8 F 98.7 F Pulse Rate 74 Pulse Rate [ 74 82 Right] Respiratory 18 18 Rate Blood Pressure 105/78 Blood Pressure 105/78 124/77 [Left Arm] O2 Sat by Pulse 100 100 Oximetry 03/12/17 03/12/17 10:00 11:10 Temperature Pulse Rate 79 Pulse Rate [ Right] Respiratory Rate Blood Pressure Blood Pressure [Left Arm] O2 Sat by Pulse 97 Oximetry - Lab 03/08/17 23:47 03/12/17 05:42 Most recent lab results Calcium 8.5 mg/dL (8.4-10.2) 03/12/17 05:42
--- NOTE | 2017-03-12 13:03 | Progress Note ---
Assessment and Plan Assessment and plan: 56M with pmh of CHF, who pw SOB x 3 days; 1. Acute exacerbation of systolic CHF EF 10% sp AICD echo, iv diuretics, cardiology consult appreciated aggressive medical therapy, has received milrinone drip, got lasix clinically improved , optimize meds 2. NSTEMI appears to be demand ischemia, cardiology consult appreciated recent negative cath 3 months ago 3. FINN likely vasomotor nephropathy improving with diuresis nephrology consult appreciated, renal u/s only showed small renal cysts, no obstruction History Interval history: Continues to have shortness of breath, he says it is now improved Hospitalist Physical - Physical exam Narrative exam: General: Patient appears well in no distress HEENT: MMM, EOMI cardiac: S1-S2 heard lungs: Decreased air entry, bibasilar crackles Abdomen: soft nontender extremities: no edema clubbing or cyanosis Skin: no rash or lesion Neuro: no focal deficit Psych: appropriate behavior and mood, cognition intact - Constitutional Vitals: Temp Pulse Resp BP Pulse Ox 98.7 F 79 18 124/77 97 03/12/17 07:45 03/12/17 10:00 03/12/17 07:45 03/12/17 07:45 03/12/17 11:10 General appearance: Present: no acute distress, well-nourished Results - Labs CBC & Chem 7: 03/08/17 23:47 03/12/17 05:42 Labs: Laboratory Last Values WBC 6.3 K/mm3 (4.5-11.0) 03/08/17 23:47 RBC 4.46 M/mm3 (3.65-5.03) 03/08/17 23:47 Hgb 13.1 gm/dl (11.8-15.2) 03/08/17 23:47 Hct 41.2 % (35.5-45.6) 03/08/17 23:47 MCV 93 fl (84-94) 03/08/17 23:47 MCH 30 pg (28-32) 03/08/17 23:47 MCHC 32 % (32-34) 03/08/17 23:47 RDW 17.8 % (13.2-15.2) H 03/08/17 23:47 Plt Count 195 K/mm3 (140-440) 03/08/17 23:47 Lymph % (Auto) 16.3 % (13.4-35.0) 03/08/17 23:47 Yates % (Auto) 8.8 % (0.0-7.3) H 03/08/17 23:47 Eos % (Auto) 0.6 % (0.0-4.3) 03/08/17 23:47 Baso % (Auto) 1.0 % (0.0-1.8) 03/08/17 23:47 Lymph # 1.0 K/mm3 (1.2-5.4) L 03/08/17 23:47 Yates # 0.5 K/mm3 (0.0-0.8) 03/08/17 23:47 Eos # 0.0 K/mm3 (0.0-0.4) 03/08/17 23:47 Baso # 0.1 K/mm3 (0.0-0.1) 03/08/17 23:47 Seg Neutrophils % 73.3 % (40.0-70.0) H 03/08/17 23:47 Seg Neutrophils # 4.6 K/mm3 (1.8-7.7) 03/08/17 23:47 Sodium 134 mmol/L (137-145) L 03/12/17 05:42 Potassium 3.6 mmol/L (3.6-5.0) 03/12/17 05:42 Chloride 94.1 mmol/L (98-107) L 03/12/17 05:42 Carbon Dioxide 25 mmol/L (22-30) 03/12/17 05:42 Anion Gap 19 mmol/L 03/12/17 05:42 BUN 75 mg/dL (9-20) H 03/12/17 05:42 Creatinine 2.3 mg/dL (0.8-1.5) H 03/12/17 05:42 Estimated GFR 36 ml/min 03/12/17 05:42 BUN/Creatinine Ratio 32.60 % 03/12/17 05:42 Glucose 91 mg/dL (75-100) 03/12/17 05:42 Calcium 8.5 mg/dL (8.4-10.2) 03/12/17 05:42 Total Creatine Kinase 319 units/L (55-170) H 03/09/17 12:43 CK-MB (CK-2) 21.7 ng/mL (0.0-4.0) H 03/09/17 12:43 CK-MB (CK-2) Rel Index 6.8 (0-4) H 03/09/17 12:43 Troponin T 0.710 ng/mL (0.00-0.029) H* 03/09/17 12:43 NT-Pro-B Natriuret Pep 01566 pg/mL (0-900) H 03/08/17 23:47 Triglycerides 107 mg/dL (2-149) 03/08/17 23:47 Cholesterol 101 mg/dL (50-199) 03/08/17 23:47 LDL Cholesterol Direct 51 mg/dL (50-130) 03/08/17 23:47 HDL Cholesterol 29 mg/dL (40-59) L 03/08/17 23:47 Cholesterol/HDL Ratio 3.48 % 03/08/17 23:47
[2017-03-13] MEDS: PRIMACOR 20 MG in D5W 80 ML IV SCH (04:35)
[2017-03-13] MEDS: NITRO-BID 2% TP SCH ×2 (05:42→11:10)
[2017-03-13] MEDS: LASIX IV SCH (05:42)
[2017-03-13 06:07] LABS: Calcium 8.9 mg/dL (8.4-10.2); Potassium 3.4 mmol/L (3.6-5.0)
--- NOTE | 2017-03-13 10:45 | Progress Note ---
Assessment and Plan Acute on chronic systolic heart failure Severe Dilated Cardiomyopathy, nonischemic LHC done 11/2016 at [facility] demonstrates normal coronaries. EF 10-15% on echocardiogram this admission. Presence of AICD Chronic renal failure Hx of CVA -on plavix and aspirin as an outpatient Hypertension Recommendations: Continue medical therapy for his acute on chronic heart failure. Advised dietary/fluid restrictions. Stable, cardiac ramsay, for discharge home today. Subjective Date of service: 03/13/17 Interval history: Patient has no complaints. Reports his breathing is better. Objective Vital Signs Temp Pulse Pulse Pulse Resp BP BP 03/13/17 08:40 03/13/17 05:42 123/72 03/13/17 04:33 98.7 F 75 20 123/72 03/13/17 01:19 98.9 F 75 18 105/61 03/12/17 23:24 80 03/12/17 23:09 98.4 F 99 H 20 118/92 03/12/17 21:24 126/81 03/12/17 21:05 03/12/17 17:40 97.6 F 84 22 126/81 03/12/17 14:03 78 101/66 03/12/17 12:40 98.3 F 76 20 117/74 03/12/17 11:10 Pulse Ox 03/13/17 08:40 95 03/13/17 05:42 03/13/17 04:33 97 03/13/17 01:19 96 03/12/17 23:24 03/12/17 23:09 98 03/12/17 21:24 03/12/17 21:05 99 03/12/17 17:40 96 03/12/17 14:03 03/12/17 12:40 97 03/12/17 11:10 97 - Physical Examination General: No Apparent Distress HEENT: Positive: PERRL Neck: Positive: neck supple Cardiac: Positive: Reg Rate and Rhythm Extremities: Absent: edema - Labs and Meds Comprehensive Metabolic Panel 03/13/17 Range/Units 05:10 Sodium 136 L (137-145) mmol/L Potassium 3.4 L (3.6-5.0) mmol/L Chloride 91.0 L (98-107) mmol/L Carbon Dioxide 32 H D (22-30) mmol/L BUN 64 H (9-20) mg/dL Creatinine 2.0 H (0.8-1.5) mg/dL Glucose 99 (75-100) mg/dL Calcium 8.9 (8.4-10.2) mg/dL
[2017-03-13] MEDS: PLAVIX PO SCH (11:09)
[2017-03-13] MEDS: APRESOLINE PO SCH (11:09)
[2017-03-13] MEDS: COREG PO SCH (11:09)
[2017-03-13] MEDS: IMDUR PO SCH (11:09)
[2017-03-13] MEDS: K-DUR PO SCH (11:10)
[2017-03-13] MEDS: ZAROXOLYN PO SCH (11:10)
[2017-03-13 11:11] VITALS: BP 116/77
[2017-03-13] MEDS: HEPARIN SUB-Q SCH (11:11)
[2017-03-13] MEDS ORDERED: FLUARIX QUAD 2016-2017(36 MOS+) IM ONE (12:00)
[2017-03-13] MEDS ORDERED: PNEUMOVAX 23 IM ONE (12:00)
== END 2017-03-13 16:58 | disposition home or self-care (01) | DRG 280 ==
LOC: ED 22:38 → 4A 03-09 06:07
PROVIDERS: ADMIT Internal Medicine; ATTEND Internal Medicine
PROC: 3E0234Z Introduction of Serum, Toxoid and Vaccine into Muscle, Percutaneous Approach (ICD-10-PCS; principal; 2017-03-13)
DX: I21.4 Non-ST elevation (NSTEMI) myocardial infarction (principal); I50.23 Acute on chronic systolic (congestive) heart failure; N17.0 Acute kidney failure with tubular necrosis; I13.0 Hypertensive heart and chronic kidney disease with heart failure and stage 1 through stage 4 chronic kidney disease, or unspecified chronic kidney disease; E87.2 Acidosis; I42.0 Dilated cardiomyopathy; J44.9 Chronic obstructive pulmonary disease, unspecified; N18.3 Chronic kidney disease, stage 3 (moderate); Z82.49 Family history of ischemic heart disease and other diseases of the circulatory system; Z86.19 Personal history of other infectious and parasitic diseases; Z95.810 Presence of automatic (implantable) cardiac defibrillator; F17.210 Nicotine dependence, cigarettes, uncomplicated; I25.10 Atherosclerotic heart disease of native coronary artery without angina pectoris; Z23 Encounter for immunization; Z86.73 Personal history of transient ischemic attack (TIA), and cerebral infarction without residual deficits
CPT/HCPCS: 36415; 71020; 76770; 80048; 80061; 82550; 82553; 83880; 84484; 85025; 90686; 90732; 93005; 93010; 93306; 94760; 99285; A9270-GY; J1644; J1940; J2260; J2270